=== PATIENT | male | born 1985 | race Caucasian/White ===

== ENCOUNTER 2020-10-09 10:43 | Outpatient (CLI) | payer OTHER, SELFPAY ==
--- NOTE | 2020-10-09 | ECG_ITS ---
Measurements Intervals [place] Rate: 75 P: 38 VT: 171 QRS: 24 QRSD: 93 T: 19 QT: 355 QTc: 398 Interpretive Statements SINUS RHYTHM MINIMAL Q WAVES- INFERIOR LEADS BASELINE ARTIFACT- III, AVF BORDERLINE ECG Electronically Signed On 10-09-2020 11:30:28 CDT by Sumanth Bolden D.O.
== END 2020-10-09 10:44 | disposition home or self-care (01) ==
DX: Z01.810 Encounter for preprocedural cardiovascular examination (principal); Z68.44 Body mass index [BMI] 60.0-69.9, adult
CPT/HCPCS: 93005